=== PATIENT | male | born 1975 | race Caucasian/White ===

== ENCOUNTER → 2016-11-23 | Outpatient (REF) ==
[~2016-11-23] MED LIST: DULERA1 ARO IH; HYZAAR 25 MG-101 TAB PO; LANTUS SOLOS100 U/ML SQ; NO HOME MEDICATIONS; NOVOLOG FLEX100 U/ML SQ; PHENERGAN 25 TA25 MG PO; SYNTHROID0.175 MG PO; VENTOLIN0.09 MG IH
== END ==
LOC: WSOH 13:50
DX: Z02.89 Encounter for other administrative examinations (principal)

== ENCOUNTER 2016-12-01 08:02 | Outpatient (RCR) | payer OTHER | END 2016-12-25 14:04 | disposition still patient (30) | LOC: WSOH 08:02 | DX: M54.5 Low back pain (principal); M62.830 Muscle spasm of back; Z79.4 Long term (current) use of insulin ==

== ENCOUNTER 2019-05-18 18:57 | Emergency (ER) | payer OTHER ==
[2019-05-18 19:14] VITALS: TEMP 98.2
[2019-05-18] MEDS ORDERED: DIOVAN HCT 25 M1 TA1 PO (19:32)
[2019-05-18] MEDS ORDERED: SPIRIVA RE2.5 MCG/Ac IH (19:33)
[2019-05-18 19:41] LABS: BASO % 0.4 % (0.0-2.0); EOS # 0.1 (0.0-0.7); EOS % 1.4 % (0-4.0); GRAN # 2.8 (1.4-6.5); GRAN % 56.8 % (42.2-75.2); HEMATOCRIT 45.5 % (42.0-52.0); HEMOGLOBIN 15.7 g/dl (13.5-18.0); LYMPH # 1.4 (1.2-3.4); LYMPH % 29.2 % (20.0-51.0); MEAN CELL VOLUME 85 fl (80.0-100.0); MEAN CORPUSCULAR HEMOGLOBIN 29 pg (27.0-31.0); MEAN CORPUSCULAR HGB CONC 35 g/dl (33.0-37.0); MEAN PLATELET VOLUME 9.1 fl (7.4-10.4); MONO # 0.6 (0.1-0.6); PLATELET COUNT 160 K/mm3 (130-400); RED BLOOD COUNT 5.36 M/mm3 (4.20-5.60); REDCELL DISTRIBUTION WIDTH-CV 12.3 % (11.5-14.5)
[2019-05-18 19:43] LABS: COLLECTION METHOD CLEAN CATCH
[2019-05-18 19:46] LABS: ALANINE AMINOTRANSFERASE 34 U/L (21-72); ALBUMIN 4.7 gm/dL (3.5-5.0); ALKALINE PHOSPHATASE 66 U/L (50-136); ANION GAP 10 mmol/L (7-16); AST,SGOT 35 U/L (15-37); BILIRUBIN,TOTAL 0.5 mg/dL (0.0-1.0); BLOOD UREA NITROGEN 31 mg/dL (9-20); CALCIUM 9.5 mg/dL (8.4-10.2); CARBON DIOXIDE 27 mmol/L (22-30); CHLORIDE 104 mmol/L (98-107); CREATININE, serum 1.44 (0.66-1.25); GLUCOSE 168 mg/dL (74-106); POTASSIUM 3.9 mmol/L (3.4-5.0); SODIUM 141 mmol/L (137-145)
[2019-05-18 19:48] LABS: ACETAMINOPHEN < 10 ug/mL (10-30); ALCOHOL(ethanol),MEDICAL < 10 mg/dL; SALICYLATE < 1.0 mg/dL
[2019-05-18 20:02] LABS: TRICYCLIC ANTIDEPRESS URINE NEGATIVE
[2019-05-18 20:16] LABS: TSH w REFLEX 0.064 uIU/mL (0.465-4.680)
[2019-05-18 20:28] LABS: MUCOUS Present /lpf; PH 5 (5-8); SQUAMOUS EPITHELIAL None Seen /hpf; URINE APPEARANCE Clear; URINE BACTERIA None Seen /hpf; URINE BILIRUBIN Negative (NEGATIVE); URINE BLOOD Negative (NEGATIVE); URINE COLOR Yellow; URINE GLUCOSE Negative (NEGATIVE); URINE KETONE Trace (NEGATIVE); URINE LEUKOCYTE ESTERASE Negative (NEGATIVE); URINE NITRATE Negative (NEGATIVE); URINE PROTEIN(semi-quant) Negative (NEGATIVE); URINE RBC 0-2 /hpf
[2019-05-19 00:01] VITALS: BP 135/81; PULSE 86
== END 2019-05-19 00:01 | disposition home or self-care (01) ==
LOC: COL.ER 18:57
PROVIDERS: Emergency Medicine
DX: F32.9 Major depressive disorder, single episode, unspecified (principal); J44.9 Chronic obstructive pulmonary disease, unspecified; I10 Essential (primary) hypertension; E11.9 Type 2 diabetes mellitus without complications; E78.5 Hyperlipidemia, unspecified; E03.9 Hypothyroidism, unspecified; F17.210 Nicotine dependence, cigarettes, uncomplicated; Z79.4 Long term (current) use of insulin
CPT/HCPCS: J7030

== ENCOUNTER → 2020-04-09 | Outpatient (CLI) | payer BC ==
[~2020-04-09] MED LIST changes: +DIOVAN HCT 25 M1 TA1 PO; +SPIRIVA RE2.5 MCG/Ac IH
== END ==
LOC: ZCOL.LAB 10:00
DX: J44.9 Chronic obstructive pulmonary disease, unspecified (principal); E11.9 Type 2 diabetes mellitus without complications; U07.1 COVID-19